=== PATIENT | female | born 2000 | race Caucasian/White ===

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

== ENCOUNTER 2022-07-11 23:15 | Emergency (ER) | payer BC, SELFPAY ==
[2022-07-11 23:20] VITALS: BP 123/80; PULSE 70; RESP 18; TEMP 36.6; O2SAT 99; BMI 35.4
--- NOTE | 2022-07-11 23:28 | ED_ITS ---
HPI - Wound/Laceration General: Chief Complaint: Wound/Laceration Stated Complaint: Left finger lac Time Seen by Provider: 07/11/22 23:17 Source: patient Mode of arrival: ambulatory Limitations: no limitations History of Present Illness: 21-year-old female states that she was using X- [employer] knife slipped and cut at the base of her left index finger she has a very small less than 1 cm laceration with bleeding controlled denies any other injuries she is unsure when her tetanus was she has full range of motion of finger. Associated symptoms: Denies chills, fever(s), nausea or vomiting Review of Systems Const: Denies: fever(s), chills, body aches or change in appetite Eyes: Denies: blurry vision or eye discomfort ENMT: Denies: throat pain or dental pain Card: Denies: chest pain Resp: Denies: dyspnea GI: Denies: abdominal pain, nausea, vomiting or diarrhea : Denies: dysuria Musc: Denies: neck pain or back pain Skin/Breast: Denies: rash Neuro: Denies: headache(s) Psych: Denies: depression Tor/Lymph: Denies: easy bruising All/Imm: Denies: urticaria [facility] ED Female Reproductive History: Date of last menstrual period: 02/12/18 Physical Exam Const: COMMON NORMALS: no acute distress HENMT: COMMON NORMALS: normocephalic and atraumatic HEAD & SCALP: no rmocephalic and atraumatic Eye: COMMON NORMALS: conjunctivae normal CONJUNCTIVA: Yes conjunctivae normal Neck/C-Spine: COMMON NORMALS: supple Chest: COMMONS NORMALS: normal inspection of the chest Resp: COMMON NORMALS: normal respiratory effort Cardio: COMMON NORMALS: regular rate RATE: regular rate GI: INSPECTION: Yes normal to inspection Extremity: EXTREMITY IMAGE (FRONT): 1. Superficial less than 1 cm laceration no tendon or nerve involvement Psych: COMMON NORMALS: mental status grossly normal Skin: COMMON NORMALS: no rashes or lesions noted GENERAL SKIN EXAM: no rashes or lesions noted Course Vital Signs: Vital signs: Vital Signs Temperature 97.8 F 07/11/22 23:20 Pulse Rate 70 07/11/22 23:20 Respiratory Rate 18 07/11/22 23:20 Blood Pressure 123/80 07/11/22 23:20 Pulse Oximetry 99 07/11/22 23:20 Oxygen Delivery Me thod 07/11/22 23:20 MDM - Wound/Laceration Medical Decision Making Patient presents here with very superficial less than 1 cm laceration to left hand no tendon or nerve involvement did Dermabond the wound she stable for disch arge she follow PCP and return if worsening. Discharge Plan Discharge Patient Disposition: Home Clinical Impression: Laceration Condition: Stable Prescriptions: No Action No Known Home Medications Discharge Orders: Discharge ED (Routine); Ordered 07/11/22 Ordered By: Whitney Worley Discharge Diet: Advance as tolerated Discharge Activity: Resume usual activity Coding Level of Care Code ED Sheet Metal Superintendent for Keira Albright
[2022-07-11] MEDS: tetanus-dipt-pertussis 0.5 mL SDV IM (23:58)
== END 2022-07-12 00:06 | disposition home or self-care (01) ==
PROVIDERS: Emergency Provider Emergency Medicine
DX: S61.412A Laceration without foreign body of left hand, initial encounter (principal); W26.0XXA Contact with knife, initial encounter; Z23 Encounter for immunization
CPT/HCPCS: 90471; 90715; 99283

== ENCOUNTER 2024-09-22 15:05 | Outpatient (RCR) | payer BC, SELFPAY | END 2024-09-25 23:59 | disposition home or self-care (01) | LOC: SPT 15:05 | DX: S42.409D Unspecified fracture of lower end of unspecified humerus, subsequent encounter for fracture with routine healing (principal); X58.XXXD Exposure to other specified factors, subsequent encounter | CPT/HCPCS: 97110; 97140; 97161 ==

== ENCOUNTER 2024-09-26 06:00 | Outpatient (RCR) | payer BC, SELFPAY | END 2024-10-25 23:59 | disposition home or self-care (01) | LOC: SPT 06:00 | PROVIDERS: Visit Provider Physician Assistant | DX: S42.409D Unspecified fracture of lower end of unspecified humerus, subsequent encounter for fracture with routine healing (principal); X58.XXXD Exposure to other specified factors, subsequent encounter | CPT/HCPCS: 97110; 97140 ==

== ENCOUNTER 2024-10-26 06:00 | Outpatient (RCR) | payer BC, SELFPAY | END 2024-11-25 23:59 | disposition home or self-care (01) | LOC: SPT 06:00 | PROVIDERS: Visit Provider Physician Assistant | DX: Z98.890 Other specified postprocedural states (principal) | CPT/HCPCS: 97110; 97140 ==

== ENCOUNTER 2024-11-26 06:00 | Outpatient (RCR) | payer BC, SELFPAY | END 2024-12-26 23:59 | disposition home or self-care (01) | LOC: SPT 06:00 | PROVIDERS: Visit Provider Physician Assistant | DX: Z98.890 Other specified postprocedural states (principal); M25.622 Stiffness of left elbow, not elsewhere classified; M25.522 Pain in left elbow | CPT/HCPCS: 97110; 97140 ==

== ENCOUNTER 2024-12-27 06:30 | Outpatient (RCR) | payer BC, SELFPAY | END 2025-01-23 23:59 | disposition home or self-care (01) | LOC: SPT 06:30 | PROVIDERS: Visit Provider Physician Assistant | DX: Z98.890 Other specified postprocedural states (principal) | CPT/HCPCS: 97110 ==

== ENCOUNTER → 2025-06-11 09:25 | Outpatient (BNVA) | payer BC, SELFPAY | PROVIDERS: PCP Family Medicine; Visit Provider Family Medicine | DX: E03.9 Hypothyroidism, unspecified (principal); D50.9 Iron deficiency anemia, unspecified; Z86.39 Personal history of other endocrine, nutritional and metabolic disease | CPT/HCPCS: 80053; 82728; 83550; 84439; 84443; 85025; 86376 ==

== ENCOUNTER 2025-07-09 14:00 | Oncology outpatient (recurring) (ONCR) | payer BC, SELFPAY ==
[2025-06-29] MEDS: iron sucrose 200 MG in sodium chloride 0.9% (100 ml) 100 ML IV (13:57)
[2025-06-29 14:46] VITALS: BP 117/75; PULSE 71; RESP 18; TEMP 35.8
[2025-07-01] MEDS: iron sucrose 200 MG in sodium chloride 0.9% (100 ml) 100 ML IV (14:46)
[2025-07-01 15:22] VITALS: BP 116/78; PULSE 76; RESP 18; TEMP 36.8
[2025-07-03] MEDS: iron sucrose 200 MG in sodium chloride 0.9% (100 ml) 100 ML IV (08:32)
[2025-07-03 09:16] VITALS: BP 106/67; PULSE 60; TEMP 36.4; O2SAT 97
[2025-07-07] MEDS: iron sucrose 200 MG in sodium chloride 0.9% (100 ml) 100 ML IV (14:34)
[2025-07-07 15:24] VITALS: BP 142/77; PULSE 88; RESP 16; TEMP 36.9; O2SAT 96
[2025-07-09] MEDS: iron sucrose 200 MG in sodium chloride 0.9% (100 ml) 100 ML IV (14:42)
== END 2025-07-26 23:59 | disposition home or self-care (01) ==
PROVIDERS: PCP Family Medicine; Visit Provider Family Medicine
DX: D50.9 Iron deficiency anemia, unspecified; Z79.899 Other long term (current) drug therapy; Z53.9 Procedure and treatment not carried out, unspecified reason
CPT/HCPCS: 96365; J1756; J7050

== ENCOUNTER → 2025-11-05 16:08 | Outpatient (BNVA) | payer BC, SELFPAY | PROVIDERS: PCP Family Medicine; Visit Provider Family Medicine | DX: D50.9 Iron deficiency anemia, unspecified (principal) | CPT/HCPCS: 82728; 83550 ==